=== PATIENT | male | born 1940 | race Caucasian/White ===

== ENCOUNTER 2018-03-08 01:27 | Inpatient (IN) | payer MEDICARE, OTHER ==
[~2018-03-08] VITALS: Ht 177.8 cm; Wt 110.9 kg
[~2018-03-08 01:27] MED LIST: CHOL10002 PO; FENO145T36 PO; FURO40TA4 PO; HUM7525 SQ; HYDR-565 PO; INSU100V9 SQ; METO-395 PO; PRAV40TA3 PO
[2018-03-08] MEDS ORDERED: SPIR25TA5 PO (02:07)
[2018-03-08] MEDS ORDERED: CARV25TA2 PO (02:07)
[2018-03-08] MEDS ORDERED: GABA-532 PO (02:07)
[2018-03-08] MEDS ORDERED: DOXY-1 PO (02:07)
[2018-03-08] MEDS ORDERED: NITR0.4T51 SL (02:07)
[2018-03-08] MEDS ORDERED: ondansetron/PF 4mg/2ml inj IV ONE (02:55)
[2018-03-08] MEDS ORDERED: morphine 4 MG/ML inj SYRINge IV ONE (02:55)
[2018-03-08 03:14] LABS: BASOPHILS % (AUTO) 0 % (0-1); EOSINOPHILS # (AUTO) 0.2 X10'3 (0-0.9); EOSINOPHILS % (AUTO) 1.7 % (0-6); HEMATOCRIT 27.2 % (42.0-52.0); HEMOGLOBIN 8.5 g/dl (14.0-17.9); LYMPHOCYTES # (AUTO) 0.7 X10'3 (1.1-4.8); LYMPHOCYTES % (AUTO) 7.1 % (21-51); MEAN CORPUSCULAR HEMOGLOBIN 24.1 PG (27.0-31.0); MEAN CORPUSCULAR HGB CONC 31.4 % (33.0-36.5); MEAN CORPUSCULAR VOLUME 76.6 FL (78-98); MONOCYTES # (AUTO) 0.8 X10'3 (0-0.9); MONOCYTES % (AUTO) 8.4 % (2-12); NEUTROPHILS # (AUTO) 7.6 X10'3 (1.8-7.7); NEUTROPHILS % (AUTO) 82.8 % (42-75); PLATELET COUNT 264 X10'3 (140-440); RED BLOOD COUNT 3.55 X10'6 (4.70-6.10); RED CELL DISTRIBUTION WIDTH 19.5 % (11.5-14.5); WHITE BLOOD COUNT 9.2 X10'3 (4.5-11.0)
[2018-03-08 03:29] LABS: ALANINE AMINOTRANSFERASE 17 U/L (12-78); ALBUMIN 3.5 G/DL (3.4-5.0); ALBUMIN/GLOBULIN RATIO 0.8 (1.1-1.5); ALKALINE PHOSPHATASE 70 IU/L (46-116); ANION GAP 9 (8-16); ASPARTATE AMINO TRANSFERASE 17 U/L (10-37); BILIRUBIN,TOTAL 0.8 MG/DL (0.1-1.0); BLOOD UREA NITROGEN 48 MG/DL (7-18); BUN/CREATININE RATIO 29.6 (5.4-32.0); CALCIUM 9.3 MG/DL (8.5-10.1); CHLORIDE 98 MMOL/L (99-107); CREATININE 1.62 MG/DL (0.60-1.10); GLUCOSE 110 MG/DL (70-104); LIPASE < 50 U/L (73-393); POTASSIUM 4.7 MMOL/L (3.5-5.1); SODIUM 137 MMOL/L (135-145); TOTAL CARBON DIOXIDE 30.1 MMOL/L (24-32); TOTAL PROTEIN 7.8 G/DL (6.4-8.2); eGFR 42 ML/MIN
[2018-03-08 03:49] LABS: ANISOCYTOSIS 2+; MICROCYTOSIS 1+; PLATELET ESTIMATE NORMAL
[2018-03-08 03:50] LABS: HYPOCHROMASIA 1+; POLYCHROMASIA 1+; SPHEROCYTES 1+
[2018-03-08] MEDS ORDERED: magnesium citrate 296ml oral solution PO ONE (04:20)
[2018-03-08] MEDS ORDERED: HYDROcodone/acetaminophen 5mg/325mg tablet PO PRN (08:00)
[2018-03-08] MEDS ORDERED: ondansetron/PF 4mg/2ml inj IV PRN (08:00)
[2018-03-08] MEDS ORDERED: acetaminophen 325mg tablet PO PRN (08:00)
[2018-03-08] MEDS ORDERED: bisacodyl 10mg suppository rectal RC PRN (08:00)
[2018-03-08] MEDS ORDERED: mag hydrox/Alum hydrox/simeth 30ml oral suspension PO PRN (08:00)
[2018-03-08] MEDS ORDERED: magnesium hydroxide 30ml (MOM) UD suspension PO PRN (08:00)
[2018-03-08] MEDS ORDERED: diphenhydrAMINE 25mg capsule PO PRN (08:00)
[2018-03-08] MEDS ORDERED: diphenhydrAMINE 50 mg/ml inj IV PRN (08:00)
[2018-03-08] MEDS ORDERED: morphine 4 MG/ML inj SYRINge IV PRN (08:00)
[2018-03-08] MEDS ORDERED: HYDROmorphone inj. 0.5 MG/0.5 ML DISP.SYRIN IV PRN ×2 (08:00)
[2018-03-08] MEDS ORDERED: glucagon, human recombinant 1mg kit SUBCUT PRN (08:05)
[2018-03-08] MEDS ORDERED: MESSAGE TO PHARMACY PO ONE (08:05)
[2018-03-08] MEDS ORDERED: dextrose ORAL solution 15 GM/59 ML bottle PO PRN ×2 (08:05)
[2018-03-08] MEDS ORDERED: dextrose 50%-water 50ml dispensing syringe IV PRN ×2 (08:05)
[2018-03-08] MEDS ORDERED: mineral oil 133ml enema RC PRN (08:10)
[2018-03-08] MEDS: morphine 4 MG/ML inj SYRINge IV PRN (08:29)
[2018-03-08] MEDS: HYDROcodone/acetaminophen 10/325mg tab PO PRN ×3 (08:32→19:14)
[2018-03-08] MEDS: carVEDilol 12.5mg tablet PO SCH ×2 (08:53→20:22)
[2018-03-08] MEDS: gabapentin 300mg capsule PO SCH ×2 (08:53→16:17)
[2018-03-08] MEDS: docusate sod 100mg capsule PO SCH ×2 (08:53→20:00)
[2018-03-08] MEDS: piperacillin/tazo 4.5gm/100ml 100 ML IV SCH ×2 (08:53→20:25)
[2018-03-08] MEDS: pantoprazole 40 MG vial IV SCH (08:53)
[2018-03-08] MEDS: metoclopramide 5 mg/ml inj IV SCH ×3 (08:53→20:22)
[2018-03-08 08:55] LABS: MAGNESIUM 2.8 MG/DL (1.5-2.4); TROPONIN I 0.05 NG/ML (0.0-0.05)
[2018-03-08] MEDS ORDERED: LORazepam 2 mg/ml vial IV ONE (09:05)
[2018-03-08 09:07] LABS: HEMOGLOBIN A1C 6.2 % (4.5-6.2)
[2018-03-08 10:00] VITALS: BP 99/51
[2018-03-08 10:50] VITALS: BP 99/51
[2018-03-08] MEDS: lactulose 20gm/30ml cup PO SCH ×2 (16:18→20:00)
[2018-03-08] MEDS ORDERED: PEG 3350/Na sulf,bicarb,Cl/KCl oral sol 4 liter bottle PO ONE (17:25)
[2018-03-08] MEDS: LORazepam 1 MG tablet PO PRN (17:41)
[2018-03-08 18:00] VITALS: BP 136/68
[2018-03-08] MEDS: polyethylene glycol 3350 17gm powd pack PO SCH (20:00)
[2018-03-08] MEDS: bisacodyl 5mg tablet.DR PO SCH (20:00)
[2018-03-08] MEDS: furosemide 10 MG/1 ML 10ml inj IV SCH (20:15)
[2018-03-08] MEDS: pravastatin 40mg tablet PO SCH (21:02)
[2018-03-08 22:02] VITALS: BP 111/55
[2018-03-09] MEDS: gabapentin 300mg capsule PO SCH ×5 (00:10→23:44)
[2018-03-09] MEDS: metoclopramide 5 mg/ml inj IV SCH ×4 (02:28→20:38)
[2018-03-09] MEDS: lactulose 20gm/30ml cup PO SCH ×4 (02:28→20:00)
[2018-03-09 03:50] LABS: CLARITY,URINE CLEAR (Clear); COLOR,URINE YELLOW (Yellow); GLUCOSE, URINE NEGATIVE (Neg); KETONES,URINE NEGATIVE (Neg); LEUKOCYTE ESTERASE ,URINE SMALL (Neg); NITRITES, URINE NEGATIVE (Neg); OCCULT BLOOD,URINE MODERATE (Neg); PROTEIN,URINE NEGATIVE (Neg)
[2018-03-09 04:00] LABS: OCCULT BLOOD STOOL POSITIVE (Neg)
[2018-03-09 04:04] LABS: UA COLLECTION TYPE OTHER
[2018-03-09 04:05] LABS: BACTERIA,URINE NONE SEEN /HPF (Neg); RBC,URINE 20-50 /HPF (0-2); SQUAMOUS EPITHELIAL CELL,UR NONE SEEN /LPF (FEW)
[2018-03-09] MEDS: LORazepam 1 MG tablet PO PRN ×4 (05:12→21:48)
[2018-03-09 05:59] LABS: BASOPHILS % (AUTO) 0.7 % (0-1); EOSINOPHILS # (AUTO) 0.2 X10'3 (0-0.9); HEMATOCRIT 26.2 % (42.0-52.0); HEMOGLOBIN 8.2 g/dl (14.0-17.9); LYMPHOCYTES # (AUTO) 0.4 X10'3 (1.1-4.8); LYMPHOCYTES % (AUTO) 8.1 % (21-51); MEAN CORPUSCULAR HEMOGLOBIN 24.2 PG (27.0-31.0); MEAN CORPUSCULAR HGB CONC 31.4 % (33.0-36.5); MEAN CORPUSCULAR VOLUME 77.1 FL (78-98); MONOCYTES # (AUTO) 0.6 X10'3 (0-0.9); MONOCYTES % (AUTO) 11.3 % (2-12); NEUTROPHILS # (AUTO) 3.8 X10'3 (1.8-7.7); NEUTROPHILS % (AUTO) 75.9 % (42-75); PLATELET COUNT 198 X10'3 (140-440); RED CELL DISTRIBUTION WIDTH 19.2 % (11.5-14.5)
[2018-03-09 06:00] VITALS: BP 107/48
[2018-03-09 06:09] LABS: ALANINE AMINOTRANSFERASE 20 U/L (12-78); ALBUMIN 3.3 G/DL (3.4-5.0); ALBUMIN/GLOBULIN RATIO 0.8 (1.1-1.5); ALKALINE PHOSPHATASE 62 IU/L (46-116); ANION GAP 4 (8-16); ASPARTATE AMINO TRANSFERASE 20 U/L (10-37); BILIRUBIN,TOTAL 0.9 MG/DL (0.1-1.0); BLOOD UREA NITROGEN 45 MG/DL (7-18); BUN/CREATININE RATIO 25.4 (5.4-32.0); CALCIUM 8.9 MG/DL (8.5-10.1); CHLORIDE 100 MMOL/L (99-107); CREATININE 1.77 MG/DL (0.60-1.10); GLUCOSE 90 MG/DL (70-104); POTASSIUM 4.2 MMOL/L (3.5-5.1); SODIUM 141 MMOL/L (135-145); TOTAL CARBON DIOXIDE 36.6 MMOL/L (24-32); TOTAL PROTEIN 7.2 G/DL (6.4-8.2); eGFR 37 ML/MIN
[2018-03-09] MEDS: docusate sod 100mg capsule PO SCH ×2 (07:10→20:00)
[2018-03-09] MEDS: carVEDilol 12.5mg tablet PO SCH ×3 (07:10→20:00)
[2018-03-09] MEDS: polyethylene glycol 3350 17gm powd pack PO SCH ×2 (07:11→20:00)
[2018-03-09] MEDS: bisacodyl 5mg tablet.DR PO SCH (07:11)
[2018-03-09 07:15] LABS: ANISOCYTOSIS 2+; PLATELET ESTIMATE NORMAL
[2018-03-09 07:16] LABS: HYPOCHROMASIA 1+; POLYCHROMASIA FEW
[2018-03-09] MEDS: furosemide 10 MG/1 ML 10ml inj IV SCH ×2 (07:39→20:33)
[2018-03-09] MEDS: pantoprazole 40 MG vial IV SCH (07:39)
[2018-03-09] MEDS: piperacillin/tazo 4.5gm/100ml 100 ML IV SCH (07:49)
[2018-03-09] MEDS: HYDROcodone/acetaminophen 10/325mg tab PO PRN ×3 (07:50→20:41)
[2018-03-09 10:00] VITALS: BP 109/57
[2018-03-09] MEDS: morphine 4 MG/ML inj SYRINge IV PRN (15:27)
[2018-03-09] MEDS ORDERED: SINCALIDE IV ONE (17:10)
[2018-03-09] MEDS ORDERED: NORMAL SALINE IV ONE (17:10)
[2018-03-09 18:00] VITALS: BP 107/49
[2018-03-09] MEDS: CefTRIAXone/D5W-Rocephin 1gm 50 ML IV SCH (19:11)
[2018-03-09] MEDS: lactobacillus rhamnosus 10,000 MMU CELLS/CAPSULE PO SCH (20:00)
[2018-03-09] MEDS: Melatonin 3mg tablet PO SCH (20:40)
[2018-03-09] MEDS: tamsulosin 0.4mg capsule PO SCH (20:40)
[2018-03-09] MEDS: pravastatin 40mg tablet PO SCH (20:41)
[2018-03-09 22:00] VITALS: BP 123/54
[2018-03-10] MEDS: metoclopramide 5 mg/ml inj IV SCH ×4 (02:00→19:50)
[2018-03-10] MEDS: lactulose 20gm/30ml cup PO SCH ×4 (02:00→19:49)
[2018-03-10] MEDS: HYDROcodone/acetaminophen 10/325mg tab PO PRN ×5 (04:18→22:15)
[2018-03-10] MEDS: LORazepam 1 MG tablet PO PRN ×4 (05:05→22:53)
[2018-03-10 05:54] LABS: BASOPHILS % (AUTO) 0.3 % (0-1); EOSINOPHILS # (AUTO) 0.3 X10'3 (0-0.9); EOSINOPHILS % (AUTO) 4.7 % (0-6); HEMATOCRIT 25.7 % (42.0-52.0); HEMOGLOBIN 7.9 g/dl (14.0-17.9); LYMPHOCYTES # (AUTO) 0.4 X10'3 (1.1-4.8); LYMPHOCYTES % (AUTO) 7.5 % (21-51); MEAN CORPUSCULAR HEMOGLOBIN 23.5 PG (27.0-31.0); MEAN CORPUSCULAR HGB CONC 30.7 % (33.0-36.5); MEAN CORPUSCULAR VOLUME 76.5 FL (78-98); MEAN PLATELET VOLUME 7.1 FL (7.4-10.4); MONOCYTES # (AUTO) 0.6 X10'3 (0-0.9); MONOCYTES % (AUTO) 11.4 % (2-12); NEUTROPHILS # (AUTO) 4.1 X10'3 (1.8-7.7); NEUTROPHILS % (AUTO) 76.1 % (42-75); PLATELET COUNT 227 X10'3 (140-440); RED BLOOD COUNT 3.36 X10'6 (4.70-6.10); RED CELL DISTRIBUTION WIDTH 19.9 % (11.5-14.5); WHITE BLOOD COUNT 5.4 X10'3 (4.5-11.0)
[2018-03-10 06:00] VITALS: BP 102/46
[2018-03-10 06:10] LABS: ALANINE AMINOTRANSFERASE 15 U/L (12-78); ALBUMIN 3.2 G/DL (3.4-5.0); ALBUMIN/GLOBULIN RATIO 0.8 (1.1-1.5); ALKALINE PHOSPHATASE 67 IU/L (46-116); ANION GAP 6 (8-16); ASPARTATE AMINO TRANSFERASE 15 U/L (10-37); BILIRUBIN,TOTAL 0.9 MG/DL (0.1-1.0); BLOOD UREA NITROGEN 38 MG/DL (7-18); CALCIUM 8.6 MG/DL (8.5-10.1); CHLORIDE 96 MMOL/L (99-107); CREATININE 1.73 MG/DL (0.60-1.10); GLUCOSE 153 MG/DL (70-104); POTASSIUM 3.8 MMOL/L (3.5-5.1); SODIUM 136 MMOL/L (135-145); TOTAL CARBON DIOXIDE 33.8 MMOL/L (24-32); TOTAL PROTEIN 7.2 G/DL (6.4-8.2); eGFR 38 ML/MIN
[2018-03-10 06:57] LABS: ANISOCYTOSIS 2+; PLATELET ESTIMATE NORMAL
[2018-03-10 06:58] LABS: HYPOCHROMASIA 1+; POLYCHROMASIA FEW
[2018-03-10 06:59] LABS: POIKILOCYTOSIS 1+
[2018-03-10] MEDS: docusate sod 100mg capsule PO SCH ×2 (08:00→19:49)
[2018-03-10] MEDS: polyethylene glycol 3350 17gm powd pack PO SCH ×2 (08:00→19:50)
[2018-03-10] MEDS: lactobacillus rhamnosus 10,000 MMU CELLS/CAPSULE PO SCH ×2 (08:10→19:50)
[2018-03-10] MEDS: carVEDilol 12.5mg tablet PO SCH ×2 (08:10→19:50)
[2018-03-10] MEDS: furosemide 10 MG/1 ML 10ml inj IV SCH (08:10)
[2018-03-10] MEDS: pantoprazole 40 MG vial IV SCH (08:10)
[2018-03-10] MEDS: CefTRIAXone/D5W-Rocephin 1gm 50 ML IV SCH (08:10)
[2018-03-10] MEDS: gabapentin 300mg capsule PO SCH ×3 (08:28→23:01)
[2018-03-10] MEDS: insulin Lispro (HumaLOG) vial - multi-dose SQ SCH ×3 (08:33→19:49)
[2018-03-10 10:00] VITALS: BP 105/47
[2018-03-10] MEDS: morphine 4 MG/ML inj SYRINge IV PRN ×2 (10:07→22:53)
[2018-03-10] MEDS: levoFLOXACIN-Levaquin 500mg/D5 100 ML IV SCH (16:23)
[2018-03-10 18:00] VITALS: BP 115/53
[2018-03-10] MEDS: furosemide 20 MG/2 ML vial IV SCH (19:50)
[2018-03-10] MEDS: pravastatin 40mg tablet PO SCH (20:58)
[2018-03-10] MEDS: tamsulosin 0.4mg capsule PO SCH (20:58)
[2018-03-10] MEDS: Melatonin 3mg tablet PO SCH (20:58)
[2018-03-10] MEDS: insulin glargine (Lantus) pen - multi-dose SQ SCH (21:03)
[2018-03-10 22:00] VITALS: BP 119/51
[2018-03-11] MEDS: metoclopramide 5 mg/ml inj IV SCH ×4 (01:26→20:11)
[2018-03-11] MEDS: lactulose 20gm/30ml cup PO SCH ×4 (01:26→20:10)
[2018-03-11] MEDS: temazepam 15mg capsule PO PRN ×3 (01:29→20:51)
[2018-03-11] MEDS: HYDROcodone/acetaminophen 10/325mg tab PO PRN ×4 (05:48→20:10)
[2018-03-11 06:00] VITALS: BP 111/56
[2018-03-11] MEDS: LORazepam 1 MG tablet PO PRN ×3 (06:16→18:56)
[2018-03-11 06:24] LABS: BASOPHILS % (AUTO) 0.3 % (0-1); EOSINOPHILS # (AUTO) 0.3 X10'3 (0-0.9); EOSINOPHILS % (AUTO) 7.3 % (0-6); HEMATOCRIT 23.9 % (42.0-52.0); HEMOGLOBIN 7.6 g/dl (14.0-17.9); LYMPHOCYTES # (AUTO) 0.4 X10'3 (1.1-4.8); LYMPHOCYTES % (AUTO) 9.6 % (21-51); MEAN CORPUSCULAR HGB CONC 31.8 % (33.0-36.5); MEAN CORPUSCULAR VOLUME 75.4 FL (78-98); MONOCYTES # (AUTO) 0.6 X10'3 (0-0.9); NEUTROPHILS # (AUTO) 2.8 X10'3 (1.8-7.7); NEUTROPHILS % (AUTO) 68.8 % (42-75); PLATELET COUNT 202 X10'3 (140-440); RED BLOOD COUNT 3.17 X10'6 (4.70-6.10); RED CELL DISTRIBUTION WIDTH 19.4 % (11.5-14.5); WHITE BLOOD COUNT 4.1 X10'3 (4.5-11.0)
[2018-03-11 06:43] LABS: ALANINE AMINOTRANSFERASE 14 U/L (12-78); ALBUMIN/GLOBULIN RATIO 0.8 (1.1-1.5); ALKALINE PHOSPHATASE 57 IU/L (46-116); ANION GAP 7 (8-16); ASPARTATE AMINO TRANSFERASE 14 U/L (10-37); BILIRUBIN,TOTAL 0.8 MG/DL (0.1-1.0); BLOOD UREA NITROGEN 33 MG/DL (7-18); BUN/CREATININE RATIO 20.2 (5.4-32.0); CALCIUM 8.6 MG/DL (8.5-10.1); CHLORIDE 97 MMOL/L (99-107); CREATININE 1.63 MG/DL (0.60-1.10); GLUCOSE 158 MG/DL (70-104); POTASSIUM 3.8 MMOL/L (3.5-5.1); SODIUM 138 MMOL/L (135-145); TOTAL CARBON DIOXIDE 33.8 MMOL/L (24-32); TOTAL PROTEIN 6.8 G/DL (6.4-8.2); eGFR 41 ML/MIN
[2018-03-11] MEDS: docusate sod 100mg capsule PO SCH ×2 (07:26→20:10)
[2018-03-11] MEDS: polyethylene glycol 3350 17gm powd pack PO SCH ×2 (07:28→20:10)
[2018-03-11] MEDS: carVEDilol 12.5mg tablet PO SCH ×2 (07:33→20:10)
[2018-03-11] MEDS: lactobacillus rhamnosus 10,000 MMU CELLS/CAPSULE PO SCH ×2 (07:33→20:10)
[2018-03-11] MEDS: pantoprazole 40mg Tablet.DR PO SCH (07:33)
[2018-03-11] MEDS: gabapentin 300mg capsule PO SCH ×2 (07:33→16:16)
[2018-03-11] MEDS: levoFLOXACIN-Levaquin 500mg/D5 100 ML IV SCH (07:33)
[2018-03-11] MEDS: furosemide 20 MG/2 ML vial IV SCH ×2 (07:33→20:11)
[2018-03-11] MEDS: morphine 4 MG/ML inj SYRINge IV PRN ×2 (07:35→20:51)
[2018-03-11] MEDS: insulin Lispro (HumaLOG) vial - multi-dose SQ SCH ×4 (08:46→20:59)
[2018-03-11 09:04] LABS: PLATELET ESTIMATE NORMAL
[2018-03-11 09:05] LABS: ANISOCYTOSIS 2+; HYPOCHROMASIA 1+; MICROCYTOSIS 1+; POLYCHROMASIA 1+; STOMATOCYTES 1+
[2018-03-11 10:00] VITALS: BP 139/87
[2018-03-11 18:00] VITALS: BP 126/70
[2018-03-11] MEDS: tamsulosin 0.4mg capsule PO SCH (20:10)
[2018-03-11] MEDS: Melatonin 3mg tablet PO SCH (20:10)
[2018-03-11] MEDS: pravastatin 40mg tablet PO SCH (20:51)
[2018-03-11] MEDS: insulin glargine (Lantus) pen - multi-dose SQ SCH (20:58)
[2018-03-11 22:00] VITALS: BP 104/48
[2018-03-11] MEDS ORDERED: morphine 2 MG/ML inj. syringe IV PRN ×2 (23:30)
[2018-03-12] MEDS: gabapentin 300mg capsule PO SCH ×2 (00:58→09:10)
[2018-03-12] MEDS: lactulose 20gm/30ml cup PO SCH ×2 (01:00→08:00)
[2018-03-12] MEDS: metoclopramide 5 mg/ml inj IV SCH ×2 (01:00→09:11)
[2018-03-12] MEDS: LORazepam 1 MG tablet PO PRN ×2 (02:16→09:11)
[2018-03-12 06:00] VITALS: BP 116/54
[2018-03-12 06:04] LABS: BASOPHILS % (AUTO) 0.4 % (0-1); EOSINOPHILS # (AUTO) 0.3 X10'3 (0-0.9); EOSINOPHILS % (AUTO) 8.3 % (0-6); HEMATOCRIT 23.9 % (42.0-52.0); HEMOGLOBIN 7.6 g/dl (14.0-17.9); LYMPHOCYTES # (AUTO) 0.4 X10'3 (1.1-4.8); LYMPHOCYTES % (AUTO) 12.2 % (21-51); MEAN CORPUSCULAR HEMOGLOBIN 23.9 PG (27.0-31.0); MEAN CORPUSCULAR HGB CONC 31.8 % (33.0-36.5); MEAN CORPUSCULAR VOLUME 75.3 FL (78-98); MEAN PLATELET VOLUME 7.2 FL (7.4-10.4); MONOCYTES # (AUTO) 0.5 X10'3 (0-0.9); MONOCYTES % (AUTO) 13.1 % (2-12); NEUTROPHILS # (AUTO) 2.3 X10'3 (1.8-7.7); PLATELET COUNT 192 X10'3 (140-440); RED BLOOD COUNT 3.17 X10'6 (4.70-6.10); RED CELL DISTRIBUTION WIDTH 18.9 % (11.5-14.5); WHITE BLOOD COUNT 3.5 X10'3 (4.5-11.0)
[2018-03-12 06:22] LABS: ALANINE AMINOTRANSFERASE 15 U/L (12-78); ALBUMIN 3.1 G/DL (3.4-5.0); ALBUMIN/GLOBULIN RATIO 0.8 (1.1-1.5); ALKALINE PHOSPHATASE 60 IU/L (46-116); ANION GAP 8 (8-16); ASPARTATE AMINO TRANSFERASE 13 U/L (10-37); BILIRUBIN,TOTAL 0.8 MG/DL (0.1-1.0); BLOOD UREA NITROGEN 28 MG/DL (7-18); BUN/CREATININE RATIO 18.5 (5.4-32.0); CALCIUM 8.5 MG/DL (8.5-10.1); CHLORIDE 98 MMOL/L (99-107); CREATININE 1.51 MG/DL (0.60-1.10); GLUCOSE 150 MG/DL (70-104); POTASSIUM 3.3 MMOL/L (3.5-5.1); SODIUM 138 MMOL/L (135-145); TOTAL CARBON DIOXIDE 31.8 MMOL/L (24-32); TOTAL PROTEIN 6.8 G/DL (6.4-8.2); eGFR 45 ML/MIN
[2018-03-12 07:28] LABS: ANISOCYTOSIS 2+; HYPOCHROMASIA 2+; MICROCYTOSIS 2+; PLATELET ESTIMATE NORMAL; POLYCHROMASIA 1+; STOMATOCYTES 1+
[2018-03-12] MEDS: polyethylene glycol 3350 17gm powd pack PO SCH ×2 (08:00→09:11)
[2018-03-12] MEDS: docusate sod 100mg capsule PO SCH (08:00)
[2018-03-12] MEDS: lactobacillus rhamnosus 10,000 MMU CELLS/CAPSULE PO SCH (09:10)
[2018-03-12] MEDS: carVEDilol 12.5mg tablet PO SCH (09:10)
[2018-03-12] MEDS: levoFLOXACIN-Levaquin 500mg/D5 100 ML IV SCH (09:11)
[2018-03-12] MEDS: furosemide 20 MG/2 ML vial IV SCH (09:11)
[2018-03-12] MEDS: pantoprazole 40mg Tablet.DR PO SCH (09:15)
[2018-03-12] MEDS: insulin Lispro (HumaLOG) vial - multi-dose SQ SCH (09:29)
[2018-03-12 10:00] VITALS: BP 128/63
[2018-03-12] MEDS ORDERED: potassium Cl 20 mEq SR tablet PO ONE (10:30)
[2018-03-12] MEDS ORDERED: TAMS0.4C32 PO (14:46)
[2018-03-12] MEDS ORDERED: LEVO500T2 PO (14:46)
[2018-03-12] MEDS ORDERED: POTA20TA19 PO (14:47)
== END 2018-03-12 15:15 | disposition home health service (06) | DRG 388 ==
LOC: ER 01:27 → ED HOLD 08:00 → ORTHO 4S 10:50
PROVIDERS: ADMIT Family Medicine; ATTEND Internal Medicine
DX: K56.41 Fecal impaction (principal); G93.40 Encephalopathy, unspecified; I50.23 Acute on chronic systolic (congestive) heart failure; N39.0 Urinary tract infection, site not specified; K81.0 Acute cholecystitis; N17.9 Acute kidney failure, unspecified; L03.116 Cellulitis of left lower limb; L03.115 Cellulitis of right lower limb; G89.4 Chronic pain syndrome; D64.9 Anemia, unspecified; E11.42 Type 2 diabetes mellitus with diabetic polyneuropathy; E11.621 Type 2 diabetes mellitus with foot ulcer; E11.622 Type 2 diabetes mellitus with other skin ulcer; E78.00 Pure hypercholesterolemia, unspecified; E87.6 Hypokalemia; I11.0 Hypertensive heart disease with heart failure; I25.10 Atherosclerotic heart disease of native coronary artery without angina pectoris; L97.529 Non-pressure chronic ulcer of other part of left foot with unspecified severity; Z79.891 Long term (current) use of opiate analgesic; Z79.4 Long term (current) use of insulin; Z79.899 Other long term (current) drug therapy; Z86.14 Personal history of Methicillin resistant Staphylococcus aureus infection
CPT/HCPCS: 36415; 74018; 74176; 76700; 80053; 81001; 82272; 82948; 83036; 83690; 83735; 83880; 84100; 84443; 84484; 85025; 87070; 87088; 96374; 96375; 97110; 97116; 97161; 97535; 99285; A6212; A6213; A6446; A6449; C9113; J0696; J1815; J1940; J1956; J2060; J2270; J2405; J2543; J2765; J2805; J7030; J7040

== ENCOUNTER 2018-03-17 02:27 | Emergency (ER) | payer MEDICARE, OTHER ==
[~2018-03-17] VITALS: Ht 177.8 cm; Wt 113.6 kg
[~2018-03-17 02:27] MED LIST changes: +CARV25TA2 PO; -CHOL10002 PO; -FENO145T36 PO; +GABA-532 PO; -HYDR-565 PO; +LEVO500T2 PO; -METO-395 PO; +NITR0.4T51 SL; +POTA20TA19 PO; +TAMS0.4C32 PO
[2018-03-17 02:45] VITALS: BP 113/60
[2018-03-17] MEDS ORDERED: LORA1TAB PO (03:08)
[2018-03-17] MEDS ORDERED: LORazepam 1 MG tablet PO ONE (03:10)
== END 2018-03-17 04:45 | disposition home or self-care (01) ==
LOC: ER 02:27
DX: F41.9 Anxiety disorder, unspecified (principal); E11.42 Type 2 diabetes mellitus with diabetic polyneuropathy; I11.0 Hypertensive heart disease with heart failure; I50.9 Heart failure, unspecified; I25.10 Atherosclerotic heart disease of native coronary artery without angina pectoris; E78.00 Pure hypercholesterolemia, unspecified; Z86.14 Personal history of Methicillin resistant Staphylococcus aureus infection; Z79.4 Long term (current) use of insulin; Z79.899 Other long term (current) drug therapy
CPT/HCPCS: 93005; 99283

== ENCOUNTER 2018-03-20 07:52 | Inpatient (IN) | payer MEDICARE, OTHER ==
[~2018-03-20] VITALS: Ht 177.8 cm; Wt 109.0 kg
[~2018-03-20 07:52] MED LIST changes: +LORA1TAB PO
[2018-03-20] MEDS ORDERED: SPIR25TA5 PO (08:40)
[2018-03-20] MEDS ORDERED: METO25TA6 PO (08:40)
[2018-03-20] MEDS ORDERED: LORA0.5T PO (08:40)
[2018-03-20] MEDS ORDERED: HYDR-565 PO (08:40)
[2018-03-20] MEDS ORDERED: FURO80TA87 PO (08:40)
[2018-03-20] MEDS ORDERED: MELA3TAB PO (08:40)
[2018-03-20 08:46] LABS: BASOPHILS % (AUTO) 0.4 % (0-1); EOSINOPHILS # (AUTO) 0.4 X10'3 (0-0.9); HEMATOCRIT 27.1 % (42.0-52.0); HEMOGLOBIN 8.2 g/dl (14.0-17.9); LYMPHOCYTES # (AUTO) 0.4 X10'3 (1.1-4.8); LYMPHOCYTES % (AUTO) 7.6 % (21-51); MEAN CORPUSCULAR HGB CONC 30.3 % (33.0-36.5); MEAN CORPUSCULAR VOLUME 75.9 FL (78-98); MEAN PLATELET VOLUME 6.8 FL (7.4-10.4); MONOCYTES # (AUTO) 0.5 X10'3 (0-0.9); MONOCYTES % (AUTO) 10.2 % (2-12); NEUTROPHILS # (AUTO) 3.5 X10'3 (1.8-7.7); NEUTROPHILS % (AUTO) 72.8 % (42-75); PLATELET COUNT 224 X10'3 (140-440); RED BLOOD COUNT 3.58 X10'6 (4.70-6.10); RED CELL DISTRIBUTION WIDTH 17.8 % (11.5-14.5); WHITE BLOOD COUNT 4.8 X10'3 (4.5-11.0)
[2018-03-20] MEDS ORDERED: DOCU-264 PO (08:46)
[2018-03-20] MEDS ORDERED: CHOL500049 PO (08:46)
[2018-03-20 09:02] LABS: ALANINE AMINOTRANSFERASE 14 U/L (12-78); ALBUMIN 3.1 G/DL (3.4-5.0); ALBUMIN/GLOBULIN RATIO 0.8 (1.1-1.5); ALKALINE PHOSPHATASE 68 IU/L (46-116); ANION GAP 6 (8-16); ASPARTATE AMINO TRANSFERASE 11 U/L (10-37); BILIRUBIN,TOTAL 0.6 MG/DL (0.1-1.0); BLOOD UREA NITROGEN 30 MG/DL (7-18); CHLORIDE 102 MMOL/L (99-107); GLUCOSE 151 MG/DL (70-104); POTASSIUM 4.4 MMOL/L (3.5-5.1); SODIUM 138 MMOL/L (135-145); TOTAL CARBON DIOXIDE 30.5 MMOL/L (24-32); TOTAL PROTEIN 7.2 G/DL (6.4-8.2); eGFR 45 ML/MIN
[2018-03-20] MEDS ORDERED: LORazepam 1 MG tablet PO ONE ×2 (09:05→22:40)
[2018-03-20 09:09] LABS: MAGNESIUM 2.3 MG/DL (1.5-2.4)
[2018-03-20] MEDS ORDERED: ondansetron/PF 4mg/2ml inj IV PRN (10:35)
[2018-03-20] MEDS ORDERED: magnesium hydroxide 30ml (MOM) UD suspension PO PRN (10:35)
[2018-03-20] MEDS ORDERED: mag hydrox/Alum hydrox/simeth 30ml oral suspension PO PRN (10:35)
[2018-03-20] MEDS: furosemide 40mg/4ml inj IV SCH ×2 (10:49→20:26)
[2018-03-20 11:40] LABS: CLARITY,URINE Clear (Clear); COLOR,URINE Yellow (Yellow); GLUCOSE, URINE Negative (Neg); KETONES,URINE Negative (Neg); LEUKOCYTE ESTERASE ,URINE Negative (Neg); NITRITES, URINE Negative (Neg); OCCULT BLOOD,URINE Negative (Neg); PROTEIN,URINE Negative (Neg)
[2018-03-20 11:42] LABS: UA COLLECTION TYPE VOIDED
[2018-03-20] MEDS ORDERED: nitroGLYCERIN 0.4mg SUBLingual tab SL PRN (12:20)
[2018-03-20] MEDS ORDERED: LORazepam 2 mg/ml vial IV ONE (12:25)
[2018-03-20] MEDS ORDERED: LORazepam 2 mg/ml vial ONE (12:26)
[2018-03-20] MEDS ORDERED: CHOL100046 PO (13:19)
[2018-03-20] MEDS ORDERED: CARV25TA PO (13:32)
[2018-03-20] MEDS ORDERED: dextrose ORAL solution 15 GM/59 ML bottle PO PRN ×2 (13:35)
[2018-03-20] MEDS ORDERED: glucagon, human recombinant 1mg kit SUBCUT PRN (13:35)
[2018-03-20] MEDS ORDERED: dextrose 50%-water 50ml dispensing syringe IV PRN ×2 (13:35)
[2018-03-20 13:40] VITALS: BP 129/64
[2018-03-20 14:29] LABS: HEMOGLOBIN A1C 6.3 % (4.5-6.2)
[2018-03-20 15:00] VITALS: BP 117/45
[2018-03-20] MEDS: gabapentin 300mg capsule PO SCH ×2 (16:21→23:15)
[2018-03-20] MEDS: LORazepam 0.5 MG tablet PO PRN (16:48)
[2018-03-20] MEDS: insulin Lispro (HumaLOG) vial - multi-dose SQ SCH (18:54)
[2018-03-20 19:00] VITALS: BP 92/52
[2018-03-20] MEDS ORDERED: HYDROcodone/acetaminophen 5mg/325mg tablet PO ONE (20:00)
[2018-03-20] MEDS ORDERED: metoprolol tartrate 12.5mg (1/2 tablet) PO SCH (20:00)
[2018-03-20] MEDS: pravastatin 40mg tablet PO SCH (20:27)
[2018-03-20] MEDS: Melatonin 3mg tablet PO SCH (20:27)
[2018-03-20] MEDS: tamsulosin 0.4mg capsule PO SCH (20:27)
[2018-03-20] MEDS: carVEDilol 12.5mg tablet PO SCH (20:27)
[2018-03-20] MEDS ORDERED: INSULIN GLARGINE HUM REC ANLOG 5 UNIT SQ SCH (21:00)
[2018-03-20] MEDS: insulin glargine (Lantus) pen - multi-dose SQ SCH (21:55)
[2018-03-20] MEDS: acetaminophen 325mg tablet PO PRN (21:57)
[2018-03-20 23:00] VITALS: BP 112/56
[2018-03-21 02:51] VITALS: BP 103/43
[2018-03-21] MEDS: LORazepam 0.5 MG tablet PO PRN ×3 (04:27→21:21)
[2018-03-21 06:00] VITALS: BP 108/58
[2018-03-21] MEDS: furosemide 40mg/4ml inj IV SCH ×2 (07:15→21:21)
[2018-03-21] MEDS: spironolactone 25 MG tablet PO SCH (07:18)
[2018-03-21] MEDS: gabapentin 300mg capsule PO SCH ×3 (07:18→23:27)
[2018-03-21] MEDS: vitamin D (cholecalciferol) 1,000 unit tablet PO SCH (07:18)
[2018-03-21] MEDS: carVEDilol 12.5mg tablet PO SCH ×2 (07:18→21:21)
[2018-03-21] MEDS: potassium Cl 20 mEq SR tablet PO SCH (07:18)
[2018-03-21] MEDS: enoxaparin 40mg/0.4ml syringe SUBCUT SCH (07:19)
[2018-03-21] MEDS: docusate sod 100mg capsule PO SCH (07:19)
[2018-03-21] MEDS: insulin Lispro (HumaLOG) vial - multi-dose SQ SCH ×3 (08:12→21:39)
[2018-03-21 11:00] VITALS: BP 108/54
[2018-03-21 15:00] VITALS: BP 103/53
[2018-03-21] MEDS: HYDROcodone/acetaminophen 10/325mg tab PO PRN ×2 (15:14→21:22)
[2018-03-21 18:00] VITALS: BP 104/48
[2018-03-21] MEDS: pravastatin 40mg tablet PO SCH (21:21)
[2018-03-21] MEDS: insulin glargine (Lantus) pen - multi-dose SQ SCH (21:21)
[2018-03-21] MEDS: Melatonin 3mg tablet PO SCH (21:21)
[2018-03-21] MEDS: tamsulosin 0.4mg capsule PO SCH (21:21)
[2018-03-21 22:00] VITALS: BP 104/46
[2018-03-21] MEDS: acetaminophen 325mg tablet PO PRN (23:28)
[2018-03-22 02:00] VITALS: BP 99/81
[2018-03-22] MEDS: HYDROcodone/acetaminophen 10/325mg tab PO PRN ×4 (03:17→21:59)
[2018-03-22] MEDS: LORazepam 0.5 MG tablet PO PRN ×3 (05:34→20:27)
[2018-03-22 06:00] VITALS: BP 115/52
[2018-03-22 06:26] LABS: BASOPHILS % (AUTO) 0.3 % (0-1); EOSINOPHILS # (AUTO) 0.5 X10'3 (0-0.9); EOSINOPHILS % (AUTO) 9.4 % (0-6); HEMATOCRIT 26.3 % (42.0-52.0); HEMOGLOBIN 8.2 g/dl (14.0-17.9); LYMPHOCYTES # (AUTO) 0.5 X10'3 (1.1-4.8); LYMPHOCYTES % (AUTO) 8.5 % (21-51); MEAN CORPUSCULAR HEMOGLOBIN 23.3 PG (27.0-31.0); MEAN CORPUSCULAR VOLUME 75.1 FL (78-98); MEAN PLATELET VOLUME 7.1 FL (7.4-10.4); MONOCYTES # (AUTO) 0.4 X10'3 (0-0.9); MONOCYTES % (AUTO) 8.3 % (2-12); NEUTROPHILS # (AUTO) 3.9 X10'3 (1.8-7.7); NEUTROPHILS % (AUTO) 73.5 % (42-75); PLATELET COUNT 268 X10'3 (140-440); RED CELL DISTRIBUTION WIDTH 18.7 % (11.5-14.5); WHITE BLOOD COUNT 5.3 X10'3 (4.5-11.0)
[2018-03-22 06:34] LABS: ALBUMIN 3.1 G/DL (3.4-5.0); ANION GAP 5 (8-16); BLOOD UREA NITROGEN 24 MG/DL (7-18); BUN/CREATININE RATIO 18.2 (5.4-32.0); CALCIUM 8.9 MG/DL (8.5-10.1); CHLORIDE 102 MMOL/L (99-107); CREATININE 1.32 MG/DL (0.60-1.10); GLUCOSE 197 MG/DL (70-104); POTASSIUM 3.8 MMOL/L (3.5-5.1); SODIUM 137 MMOL/L (135-145); TOTAL CARBON DIOXIDE 30.5 MMOL/L (24-32); eGFR 53 ML/MIN
[2018-03-22] MEDS: gabapentin 300mg capsule PO SCH ×3 (08:12→23:53)
[2018-03-22] MEDS: carVEDilol 12.5mg tablet PO SCH ×2 (08:12→20:27)
[2018-03-22] MEDS: furosemide 40mg/4ml inj IV SCH ×2 (08:12→19:23)
[2018-03-22] MEDS: potassium Cl 20 mEq SR tablet PO SCH (08:12)
[2018-03-22] MEDS: spironolactone 25 MG tablet PO SCH (08:12)
[2018-03-22] MEDS: docusate sod 100mg capsule PO SCH (08:12)
[2018-03-22] MEDS: vitamin D (cholecalciferol) 1,000 unit tablet PO SCH (08:13)
[2018-03-22] MEDS: enoxaparin 40mg/0.4ml syringe SUBCUT SCH (08:14)
[2018-03-22] MEDS: insulin Lispro (HumaLOG) vial - multi-dose SQ SCH ×3 (08:28→18:59)
[2018-03-22 08:39] LABS: ANISOCYTOSIS 2+; HYPOCHROMASIA 1+; MICROCYTOSIS 1+; PLATELET ESTIMATE NORMAL
[2018-03-22 08:41] LABS: POLYCHROMASIA FEW
[2018-03-22 11:00] VITALS: BP 99/50
[2018-03-22 15:00] VITALS: BP 119/58
[2018-03-22 18:00] VITALS: BP 98/52
[2018-03-22] MEDS: ziprasidone IM 20mg inj **IM only IM PRN (19:13)
[2018-03-22] MEDS: insulin glargine (Lantus) pen - multi-dose SQ SCH (21:00)
[2018-03-22] MEDS ORDERED: aripiprazole 5mg tablet PO SCH (21:00)
[2018-03-22] MEDS: tamsulosin 0.4mg capsule PO SCH (21:01)
[2018-03-22] MEDS: pravastatin 40mg tablet PO SCH (21:02)
[2018-03-22] MEDS: Melatonin 3mg tablet PO SCH (21:02)
[2018-03-22 22:00] VITALS: BP 104/46
[2018-03-23] MEDS: HYDROcodone/acetaminophen 10/325mg tab PO PRN ×3 (01:56→09:56)
[2018-03-23 02:00] VITALS: BP 162/59
[2018-03-23] MEDS: LORazepam 0.5 MG tablet PO PRN (04:23)
[2018-03-23] MEDS: ziprasidone IM 20mg inj **IM only IM PRN (04:59)
[2018-03-23 07:00] VITALS: BP 107/49
[2018-03-23] MEDS ORDERED: memantine hcl 7mg SR capsule (24-hr) PO SCH (08:00)
[2018-03-23] MEDS: furosemide 40mg/4ml inj IV SCH (08:14)
[2018-03-23] MEDS: spironolactone 25 MG tablet PO SCH (08:15)
[2018-03-23] MEDS: carVEDilol 12.5mg tablet PO SCH (08:15)
[2018-03-23] MEDS: vitamin D (cholecalciferol) 1,000 unit tablet PO SCH (08:15)
[2018-03-23] MEDS: docusate sod 100mg capsule PO SCH (08:15)
[2018-03-23] MEDS: gabapentin 300mg capsule PO SCH ×2 (08:15→16:00)
[2018-03-23] MEDS: potassium Cl 20 mEq SR tablet PO SCH (08:15)
[2018-03-23] MEDS: enoxaparin 40mg/0.4ml syringe SUBCUT SCH (08:17)
[2018-03-23] MEDS: insulin Lispro (HumaLOG) vial - multi-dose SQ SCH ×2 (08:24→13:36)
[2018-03-23 09:15] LABS: BASOPHILS % (AUTO) 0.4 % (0-1); EOSINOPHILS # (AUTO) 0.6 X10'3 (0-0.9); EOSINOPHILS % (AUTO) 13.5 % (0-6); HEMATOCRIT 28.3 % (42.0-52.0); HEMOGLOBIN 8.8 g/dl (14.0-17.9); LYMPHOCYTES # (AUTO) 0.4 X10'3 (1.1-4.8); LYMPHOCYTES % (AUTO) 9.8 % (21-51); MEAN CORPUSCULAR HGB CONC 31.2 % (33.0-36.5); MEAN CORPUSCULAR VOLUME 73.8 FL (78-98); MEAN PLATELET VOLUME 6.6 FL (7.4-10.4); MONOCYTES # (AUTO) 0.4 X10'3 (0-0.9); MONOCYTES % (AUTO) 8.3 % (2-12); NEUTROPHILS # (AUTO) 3.1 X10'3 (1.8-7.7); PLATELET COUNT 267 X10'3 (140-440); RED BLOOD COUNT 3.83 X10'6 (4.70-6.10); RED CELL DISTRIBUTION WIDTH 18.9 % (11.5-14.5); WHITE BLOOD COUNT 4.5 X10'3 (4.5-11.0)
[2018-03-23 09:24] LABS: ALBUMIN 3.3 G/DL (3.4-5.0); ANION GAP 8 (8-16); BLOOD UREA NITROGEN 20 MG/DL (7-18); BUN/CREATININE RATIO 17.5 (5.4-32.0); CALCIUM 9.3 MG/DL (8.5-10.1); CHLORIDE 100 MMOL/L (99-107); CREATININE 1.14 MG/DL (0.60-1.10); GLUCOSE 264 MG/DL (70-104); POTASSIUM 4.1 MMOL/L (3.5-5.1); SODIUM 137 MMOL/L (135-145); TOTAL CARBON DIOXIDE 28.6 MMOL/L (24-32); eGFR 62 ML/MIN
[2018-03-23 11:00] VITALS: BP 159/70
[2018-03-23 11:34] LABS: ANISOCYTOSIS 2+; HYPOCHROMASIA 1+; PLATELET ESTIMATE NORMAL; POLYCHROMASIA FEW; ROULEAUX 1+
[2018-03-23 11:41] LABS: ELLIPTOCYTES FEW; SCHISTOCYTES FEW
[2018-03-23 15:00] VITALS: BP 114/62
[2018-03-23] MEDS ORDERED: MEMA7CAP PO (15:51)
== END 2018-03-23 19:11 | disposition home health service (06) | DRG 291 ==
LOC: ER 07:52 → ED HOLD 10:31 → EDBEDREQ 12:17 → PCU 3S 13:30
PROVIDERS: ADMIT Family Medicine; ATTEND Family Medicine
DX: I11.0 Hypertensive heart disease with heart failure (principal); G93.49 Other encephalopathy; I50.23 Acute on chronic systolic (congestive) heart failure; E78.5 Hyperlipidemia, unspecified; E11.65 Type 2 diabetes mellitus with hyperglycemia; F41.9 Anxiety disorder, unspecified; E11.42 Type 2 diabetes mellitus with diabetic polyneuropathy; E11.621 Type 2 diabetes mellitus with foot ulcer; L97.519 Non-pressure chronic ulcer of other part of right foot with unspecified severity; L97.529 Non-pressure chronic ulcer of other part of left foot with unspecified severity; E78.00 Pure hypercholesterolemia, unspecified; F03.90 Unspecified dementia, unspecified severity, without behavioral disturbance, psychotic disturbance, mood disturbance, and anxiety; N19 Unspecified kidney failure; G89.4 Chronic pain syndrome; I25.10 Atherosclerotic heart disease of native coronary artery without angina pectoris; Z91.14 Patient's other noncompliance with medication regimen; Z99.81 Dependence on supplemental oxygen; Z79.4 Long term (current) use of insulin; Z79.899 Other long term (current) drug therapy
CPT/HCPCS: 36415; 70450; 71045; 72125; 80048; 80053; 81003; 82948; 83036; 83735; 83880; 84484; 85025; 87070; 93005; 97116; 97162; 97530; 99285; A4344; A4649; A6196; A6212; A6213; A6223; A6250; A6253; A6446; A6449; A9270; J1650; J1815; J1940; J2060; J3486; L0172